=== PATIENT | male | born 1985 | race Asian ===

== ENCOUNTER → 2016-09-30 | Outpatient (CLI) | payer SELFPAY ==
--- NOTE | 2016-09-30 12:15 | DI ---
XR KNEE CMPT 4 OR MORE VWS,09/30/2016 10:41 AM: Clinical History: Left knee pain of unspecified chronicity. Previous Exam: None at this facility. Findings: 4 views of the left knee are obtained, and demonstrate anatomic alignment without fractures. Impression: Normal left knee.
--- NOTE | 2016-09-30 12:54 | DI ---
XR PELVIS 1-2VW,09/30/2016 11:09 AM: Clinical History: Left knee pain of unspecified chronicity. Previous Exam: None at this facility. Findings: Single AP view of the pelvis is obtained, and demonstrates anatomic alignment without fractures. A no nobstructive bowel gas pattern is seen. Impression: Normal pelvis
== END ==
LOC: ORTHO 10:51
PROVIDERS: ATTEND Orthopaedic Surgery
DX: M25.562 Pain in left knee (principal); M25.552 Pain in left hip
CPT/HCPCS: 72170; 73564